=== PATIENT | male | born 1990 | race Caucasian/White ===

== ENCOUNTER 2016-12-20 09:08 | Emergency (ER) | payer MEDICAID ==
[~2016-12-20] VITALS: Ht 167.6 cm; Wt 59.1 kg
[2016-12-20 10:51] VITALS: BP 120/74
[2016-12-20] MEDS ORDERED: IBUPROFEN 800 MG TABLET PO ONE (11:00)
== END 2016-12-20 10:59 | disposition home or self-care (01) ==
LOC: EMS 09:12
DX: R20.0 Anesthesia of skin (principal); R25.2 Cramp and spasm
CPT/HCPCS: 93971; 99284